=== PATIENT | female | born 1975 | race Native Hawaiian/Other Pacific Islander ===

== ENCOUNTER 2016-06-02 15:01 | Outpatient (CLI) | payer BC | END 2016-06-02 20:06 | disposition home or self-care (01) | LOC: RAD 15:01 | DX: M25.522 Pain in left elbow (principal) ==

== ENCOUNTER 2023-01-03 15:44 | Outpatient (CLI) | payer BC | END 2023-01-03 19:20 | disposition home or self-care (01) | LOC: RAD 15:44 | PROVIDERS: ATTEND Internal Medicine | DX: M53.3 Sacrococcygeal disorders, not elsewhere classified (principal) ==